=== PATIENT | male | born 2000 | race Caucasian/White ===

== ENCOUNTER 2021-11-01 20:17 | Emergency (ER) | payer OTHER ==
[~2021-11-01] VITALS: Ht 170.2 cm; Wt 70.0 kg
[2021-11-01 20:26] VITALS: TEMP 97.2
[2021-11-01] MEDS ORDERED: ZOFRAN ODT4 MG PO (21:20)
[2021-11-01 21:32] VITALS: BP 134/78; PULSE 76
== END 2021-11-01 21:32 | disposition home or self-care (01) ==
LOC: COL.ER 20:17
DX: S06.0X0A Concussion without loss of consciousness, initial encounter (principal); W22.8XXA Striking against or struck by other objects, initial encounter; Y93.6A Activity, physical games generally associated with school recess, summer camp and children